=== PATIENT | female | born 1970 | race Caucasian/White ===

== ENCOUNTER 2016-08-12 11:30 | Emergency (ER) | payer BC ==
[~2016-08-12 11:30] MED LIST: ARMOUR THYRO90 MG PO
== END 2016-08-12 12:34 | disposition home or self-care (01) ==
LOC: ER 11:30
DX: R51 Headache (principal); Z88.8 Allergy status to other drugs, medicaments and biological substances
CPT/HCPCS: 70450; 96374; 99284; J1200; J1885; J2765